=== PATIENT | female | born 1975 | race Caucasian/White ===

== ENCOUNTER 2017-02-15 00:06 | Emergency (ER) | payer OTHER ==
[~2017-02-15] VITALS: Ht 167.6 cm; Wt 86.2 kg
[2017-02-15 00:07] VITALS: BP 143/93
[2017-02-15] MEDS ORDERED: IV NORMAL SALINE 1,000ML 1,000 ML IV SCH (00:30)
[2017-02-15] MEDS ORDERED: MORPHINE SULFATE 4 MG/ML DISP.SYRIN. IM ONE (00:30)
[2017-02-15] MEDS ORDERED: KETOROLAC 60 MG/2 ML VIAL. IM ONE (00:30)
[2017-02-15] MEDS ORDERED: 0.9 % SODIUM CHLORIDE 10 ML DISP.SYRIN. IV PRN (00:30)
[2017-02-15] MEDS ORDERED: ONDANSETRON PF 4 MG/2 ML VIAL. IV ONE (00:30)
--- NOTE | 2017-02-15 00:30 | PHYS DOC ---
Past History Additional Past Medical Histor: menorrhagia Past Surgical History: Appendectomy, Cholecystectomy, Smoking: Cigarettes, Less than 1pk/day Alcohol Use: Occasionally Drug Use: None Adult General Chief Complaint Chief Complaint: ABDOMINAL PAIN HPI HPI Patient is a pleasant 41-year-old female G1 PTs 1001 was on her menstrual period presents with right lower quadrant abdominal pain in the suprapubic region described as typical crampy with the side of her menstrual periods. She admits to normal she can take Motrin for her symptoms but now that is not improved her symptoms and she came in for treatment. She denies any UTI symptoms , nausea, vomiting, diarrhea. The only complaint that she has if she feels like she has press down crying a lot intra-abdominal pressure to urinate. Patient's pain is moderate at this time with some mild radiation to the lower back. On the right patient denies any trauma denies any trauma or travel denies any recent antibiotic's. Patient did relate to us that she is going through a divorce and separation from her who was found cheating on her. She was seen 2 weeks ago by her primary care doctor and screened for STDs and which she told are negative. Review of Systems Review of Systems Constitutional: Denies fever or chills [] Eyes: Denies change in visual acuity, redness, or eye pain [] HENT: Denies nasal congestion or sore throat [] Respiratory: Denies cough or shortness of breath [] Cardiovascular: No additional information not addressed in HPI [] GI: As in waves of lower abdominal pain with no nausea no vomiting no bloody stools or diarrhea. sHe is having dysmenorrhea with increased vaginal bleeding. : Denies dysuria or hematuria [she is having some urgency Musculoskeletal: Patient does complain of some mild back pain on the right Integument: Denies rash or skin lesions [] Neurologic: Denies headache, focal weakness or sensory changes [] Endocrine: Denies polyuria or polydipsia [] All other systems were reviewed and found to be within normal limits, except as documented in this note. Current Medications Current Medications Current Medications Medications (Trade) Dose Ordered Sig/Kristofer Start Time Stop Time Status Last Admin Dose Admin Ketorolac Tromethamine (Toradol) 60 mg 1X ONCE 02/15/17 00:30 02/15/17 00:31 UNV Morphine Sulfate (Morphine 4mg Syringe) 4 mg 1X ONCE 02/15/17 00:30 02/15/17 00:31 UNV Physical Exam Physical Exam Patient's vital signs are normal recorded on the chart Constitutional: Well developed, well nourished, no acute distress, non-toxic appearance. [] HENT: Normocephalic, atraumatic, bilateral external ears normal, oropharynx moist, no oral exudates, nose normal. [] Eyes: PERRLA, EOMI, conjunctiva normal, no discharge. [] Neck: Normal range of motion, no tenderness, supple, no stridor. [] Cardiovascular:Heart rate regular rhythm, no murmur [] Lungs & Thorax: Bilateral breath sounds clear to auscultation [] Abdomen: Patient does have tenderness over the supervision old on the right lower quadrant. Skin: Warm, dry, no erythema, no rash. [] Back: Mild tenderness of the right blanca spinae muscles but nothing midline no CVA tenderness. [] Extremities: No tenderness, no cyanosis, no clubbing, ROM intact, no edema. [] Neurologic: Alert and oriented X 3, normal motor function, normal sensory function, no focal deficits noted. [] Psychologic: sHe is mildly anxious while she is in pain but normal judgment EKG EKG [] Radiology/Procedures Radiology/Procedures [] Course & Med Decision Making Course & Med Decision Making Pertinent Labs and Imaging studies reviewed. (See chart for details) []She presents with menorrhagia. She typically takes Motrin and he feels better but unfortunately she is concerned that she needs something for part for pain. Initial presentation patient's urine test was positive. In order to confirm location patient had serum quantitative hCG completed, ultrasound and appropriate lab work. Patient's Quant was less than 1, ultrasound demonstrated normal flow to both ovaries and no evidence of ovarian torsion, no evidence of ectopic , no evidence of whatsoever. Patient's uterus was closed and not retaining any foreign body or bleeding. Patient's urinalysis or signs of contamination secondary to red blood cells and epithelial cells with no signs of infection patient has no elevated white blood cell count of 16.2 of unclear etiology CBC is normal otherwise Laboratory Tests Test 02/15/17 00:15 02/15/17 00:40 02/15/17 01:41 Urine Collection Type Unknown Urine Color Yellow Urine Clarity Hazy Urine pH 5.5 Urine Specific [place] >=1.030 Urine Protein 30 mg/dl (NEG-TRACE) Urine Glucose (UA) Neg mg/dL (NEG) Urine Ketones (Stick) Neg mg/dL (NEG) Urine Blood Large (NEG) Urine Nitrite Neg (NEG) Urine Bilirubin Neg (NEG) Urine Urobilinogen Dipstick 0.2 mg/dL (0.2 mg/dL) Urine Leukocyte Esterase Small (NEG) Urine RBC >40 /HPF (0-2) Urine WBC 1-4 /HPF (0-4) Urine Squamous Epithelial Cells Few /LPF Urine Bacteria Few /HPF (0-FEW) White Blood Count 16.2 x10^3/uL (4.0-11.0) H Red Blood Count 4.51 x10^6/uL (3.50-5.40) Hemoglobin 14.3 g/dL (12.0-15.5) Hematocrit 41.1 % (36.0-47.0) Mean Corpuscular Volume 91 fL (79-100) Mean Corpuscular Hemoglobin 32 pg (25-35) Mean Corpuscular Hemoglobin Concent 35 g/dL (31-37) Red Cell Distribution Width 13.0 % (11.5-14.5) Platelet Count 219 x10^3/uL (140-400) Neutrophils (%) (Auto) 77 % (31-73) H Lymphocytes (%) (Auto) 13 % (24-48) L Monocytes (%) (Auto) 7 % (0-9) Eosinophils (%) (Auto) 3 % (0-3) Basophils (%) (Auto) 1 % (0-3) Neutrophils # (Auto) 12.4 x10^3uL (1.8-7.7) H Lymphocytes # (Auto) 2.1 x10^3/uL (1.0-4.8) Monocytes # (Auto) 1.1 x10^3/uL (0.0-1.1) Eosinophils # (Auto) 0.4 x10^3/uL (0.0-0.7) Basophils # (Auto) 0.1 x10^3/uL (0.0-0.2) Segmented Neutrophils % 74 % (35-66) H Band Neutrophils % 2 % (0-9) Lymphocytes % 17 % (24-48) L Monocytes % 6 % (0-10) Eosinophils % 1 % (0-5) Platelet Estimate Adequate (ADEQUATE) Maternal Serum HCG Beta Subunit < 1 mIU/mL (0-6) Sodium Level 140 mmol/L (136-145) Potassium Level 3.6 mmol/L (3.5-5.1) Chloride Level 103 mmol/L (98-107) Carbon Dioxide Level 26 mmol/L (21-32) Anion Gap 11 (6-14) Blood Urea Nitrogen 16 mg/dL (7-20) Creatinine 0.9 mg/dL (0.6-1.0) Estimated GFR (Cockcroft-Gault) 69.7 Glucose Level 105 mg/dL (70-99) H Calcium Level 8.8 mg/dL (8.5-10.1) POC Urine HCG, Qualitative hcg positive (Negative) Patient had discussed menorrhagia and treatment for this issue.discharge: I've spoken with the patient and/or caregivers. I've explained the patient's condition, diagnosis and treatment plan based on information available to me at this time. I've answered the patient's and/or caregivers questions and addressed any concerns. The patient and/or caregivers have a good understanding the patient's diagnosis, condition and treatment plan as can be expected at this point. Vital signs have been stabilized. The patient's condition is stable for discharge from the emergency department. The patient will pursue further outpatient evaluation with her primary care provider or other designated consulting physician as outlined in the discharge instructions. Patient and/or caregivers are agreeable to this plan of care and follow-up instructions have been explained in detail. The patient and/or caregivers have received these instructions in written format and expressed understanding of these discharge instructions. The patient and her caregivers are aware that if any significant change in condition or worsening of symptoms should prompt him to immediately return to this of the closest emergency department. If an emergent department is not readily available I would encourage him to call 911. Sandra Disclaimer Dragon Disclaimer This electronic medical record was generated, in whole or in part, using a voice recognition dictation system. Departure Departure: Impression: Primary Impression: Menorrhagia Disposition: 01 HOME, SELF-CARE Condition: IMPROVED Referrals: MAURICE BEATTY MD (PCP) Patient Instructions: Menorrhagia Additional Instructions: discharge: I've spoken with the patient and/or caregivers. I've explained the patient's condition, diagnosis and treatment plan based on information available to me at this time. I've answered the patient's and/or caregivers questions and addressed any concerns. The patient and/or caregivers have a good understanding the patient's diagnosis, condition and treatment plan as can be expected at this point. Vital signs have been stabilized. The patient's condition is stable for discharge from the emergency department. The patient will pursue further outpatient evaluation with her primary care provider or other designated consulting physician as outlined in the discharge instructions. Patient and/or caregivers are agreeable to this plan of care and follow-up instructions have been explained in detail. The patient and/or caregivers have received these instructions in written format and expressed understanding of these discharge instructions. The patient and her caregivers are aware that if any significant change in condition or worsening of symptoms should prompt him to immediately return to this of the closest emergency department. If an emergent department is not readily available I would encourage him to call 911. Scripts Naproxen Sodium (NAPROXEN SODIUM) 275 Mg Tablet 275 MG PO BID for 7 Days, #14 TAB Prov: AARTI AUGUSTINE MD 02/15/17 Hydrocodone Bit/Acetaminophen (HYDROCODONE-APAP 5-325 ) 1 Each Tablet 1 TAB PO PRN Q6HRS Y for PAIN for 3 Days, #10 TAB 0 Refills Prov: AARTI AUGUSTINE MD 02/15/17 AARTI AUGUSTINE MD Feb 15, 2017 00:30
[2017-02-15 01:13] LABS: BASO # 0.1 x10^3/uL (0.0-0.2); BASO % 1 % (0-3); EOS # 0.4 x10^3/uL (0.0-0.7); EOS % 3 % (0-3); HEMATOCRIT 41.1 % (36.0-47.0); HEMOGLOBIN 14.3 g/dL (12.0-15.5); LYMPH # 2.1 x10^3/uL (1.0-4.8); LYMPH % 13 % (24-48); MEAN CORPUSCULAR HEMOGLOBIN 32 pg (25-35); MEAN CORPUSCULAR HGB CONC 35 g/dL (31-37); MEAN CORPUSCULAR VOLUME 91 fL (79-100); MONO # 1.1 x10^3/uL (0.0-1.1); MONO % 7 % (0-9); NEUT # 12.4 x10^3uL (1.8-7.7); NEUT % 77 % (31-73); PLATELET COUNT 219 x10^3/uL (140-400); RED BLOOD COUNT 4.51 x10^6/uL (3.50-5.40); WHITE BLOOD COUNT 16.2 x10^3/uL (4.0-11.0)
[2017-02-15 01:18] LABS: CALCIUM 8.8 mg/dL (8.5-10.1); CREATININE 0.9 mg/dL (0.6-1.0); GFR 69.7; POTASSIUM 3.6 mmol/L (3.5-5.1)
[2017-02-15 01:20] LABS: BILIRUBIN,URINE NEG (NEG); CLARITY,URINE HAZY; COLOR,URINE YELLOW; GLUCOSE,URINE NEG (NEG)
[2017-02-15 01:21] LABS: BACTERIA,URINE FEW /HPF (0-FEW); NITRITE,URINE NEG (NEG); RBC,URINE >40 /HPF (0-2); SQUAMOUS EPITHELIAL CELL,UR FEW /LPF; UROBILINOGEN,URINE 0.2 mg/dL (0.2 mg/dL)
[2017-02-15 01:41] LABS: % BANDS 2 % (0-9); % EOS 1 % (0-5); % LYMPHS 17 % (24-48); % MONOS 6 % (0-10); % SEGS 74 % (35-66); PLT ESTIMATE ADEQUATE (ADEQUATE)
[2017-02-15] MEDS ORDERED: HYDR-2758 PO (01:50)
[2017-02-15] MEDS ORDERED: NAPR275T59 PO (01:50)
--- NOTE | 2017-02-15 02:07 | RAD ---
Obstetrical ultrasound less than 14 weeks transabdominal and transvaginal imaging HISTORY: Cramping, vaginal bleeding, positive urine negative hCG quantitative Transabdominal ultrasound was performed. Bladder is mildly distended but the uterus is poorly seen. There is no free fluid in the pelvis. Ovaries were not identified. Transvaginal imaging was performed for further evaluation. There is debris in the endometrium and endocervical canal likely hemorrhage or retained products of conception. A gestational sac is not identified. A yolk sac is not identified. There is no free fluid in the cul-de-sac. Uterus measures 11.1 x 4.5 x 4.9 cm. Endometrium measured 1.1 cm. Left ovary was normal measuring 3.9 x 2.4 x 2.3 cm with small follicles Right ovary was normal measuring 2 x 2.7 x 2.1 cm with small follicles. There is flow in both ovaries with color imaging and Doppler On the cine loop there appears to be movement of the endometrial debris probably related to hemorrhage. IMPRESSION: 1. Debris in the endometrium or hemorrhage. 2. A gestational sac is not identified. 3. No adnexal mass or free fluid. 4. Normal ovaries Electronically signed by: Oleg Gloria MD (02/15/2017 2:03 AM) [facility]
== END 2017-02-15 02:00 | disposition home or self-care (01) ==
LOC: ER 00:06
DX: N92.0 Excessive and frequent menstruation with regular cycle (principal); Z33.1 Pregnant state, incidental
CPT/HCPCS: 36415; 76801; 80048; 81001; 81025; 84702; 85007; 85025; 86900; 86901; 87086; 96361; 96372; 96374; 99285; J2270; J2405; J7030

== ENCOUNTER → 2017-02-25 | Outpatient (CLI) | payer OTHER ==
[2017-02-15 00:07] VITALS: BP 143/93
[~2017-02-25] MED LIST: HYDR-2758 PO; NAPR275T59 PO
[2017-02-25 09:09] LABS: ALBUMIN 3.9 g/dL (3.4-5.0); ALBUMIN/GLOBULIN RATIO 1.2 (1.0-1.7); CALCIUM 8.7 mg/dL (8.5-10.1); CREATININE 0.7 mg/dL (0.6-1.0); GFR 93.2; POTASSIUM 4.1 mmol/L (3.5-5.1); TOTAL BILIRUBIN 0.4 mg/dL (0.2-1.0); TOTAL PROTEIN 7.2 g/dL (6.4-8.2)
[2017-02-25 14:10] LABS: THYROID STIM HORMONE (TSH) 2.122 uIU/mL (0.358-3.740)
[2017-02-25 19:08] LABS: DHEA SO4 157.8 ug/dL (57.3-279.2); ESTRADIOL LEVEL 137.5 pg/mL (.); FSH 6.2 mIU/mL (.); PROLACTIN 11.7 ng/mL (4.8-23.3)
[2017-02-27 22:07] LABS: INSULIN LEVEL 18.4 uIU/mL (2.6-24.9)
== END | disposition home or self-care (01) ==
LOC: LAB 07:49
PROVIDERS: ATTEND Family Medicine
DX: N92.0 Excessive and frequent menstruation with regular cycle (principal); N89.8 Other specified noninflammatory disorders of vagina; F17.210 Nicotine dependence, cigarettes, uncomplicated; R79.89 Other specified abnormal findings of blood chemistry
CPT/HCPCS: 36415; 80053; 80061; 82627; 82670; 83001; 83002; 83036; 83525; 84146; 84402; 84403; 84443

== ENCOUNTER 2017-03-19 17:22 | Emergency (ER) | payer OTHER ==
[~2017-03-19] VITALS: Ht 167.6 cm; Wt 86.2 kg
[2017-03-19 17:27] VITALS: BP 119/72
--- NOTE | 2017-03-19 17:45 | PHYS DOC ---
General Chief Complaint: SEXUALLY TRANSMITTED DISEASE Stated Complaint: STD EXPOSURE Time Seen by MD: 17:42 Source: patient Exam Limitations: no limitations Problems: History of Present Illness Initial Comments Patient is a 41-year-old female complaining of STI exposure. Patient is and monogamous she states that her spouse recently revealed that he has not been faithful and tested positive for gonorrhea. Patient is requesting treatment she does not want any testing at this time. She does have history of Trichomonas exposure infection and treatment in the past which she also contracted from her spouse. She currently denies any symptoms no dysuria dyspareunia discharge odor or urinary symptoms. She is emotional when discussing the events but denies suicidal or homicidal ideation. Vital signs are stable Timing/Duration: other Severity: moderate Modifying Factors: improves with other Allergies: Coded Allergies: Penicillins (Verified Allergy, Unknown, 02/15/17) Past Medical History Medical History: no pertinent history Surgical History: noncontributory Social History Smoker: non-smoker Alcohol: none Drugs: none Review of Systems Constitutional: denies chills, denies fever Respiratory: denies cough, denies shortness of breath Cardiovascular: denies chest pain Gastrointestinal: denies abdominal pain, denies nausea, denies vomiting Genitourinary: denies discharge, denies dysuria, denies frequency, denies hematuria Musculoskeletal: denies back pain, denies joint swelling Physical Exam General Appearance: WD/WN, no apparent distress Ear, Nose, Throat: hearing grossly normal, normal ENT inspection Neck: non-tender, supple Respiratory: normal breath sounds, no respiratory distress Cardiovascular: normal peripheral pulses, regular rate, rhythm Gastrointestinal: non tender, soft Rectal: deferred Back: no CVA tenderness, no vertebral tenderness, other (pelvic deferred per patient) Extremities: non-tender, normal inspection Neurologic/Psychiatric: aqua ammonia operator II-XII nml as tested, no motor/sensory deficits, alert, oriented x 3 Skin: normal color, warm/dry Orders, Labs, Meds Rocephin and Zithromax given in the emergency department. I discussed departure instructions for [id number] and provided them in written form see below. Patient expressed agreement and understanding. Departure Time of Disposition: 17:43 Disposition: 01 HOME, SELF-CARE Diagnosis: STI exposure Condition: GOOD Patient Instructions: Gonorrhea, Females and Males Additional Instructions: As discussed, Rocephin and Zithromax were given in the emergency department and should adequately treat this infection if present. Barrier protection until follow-up with your doctor and retesting is negative. Follow-up with your doctor in 5 days for recheck. Return to the ED with new or changing symptoms. NIYA CERVANTES DO Mar 19, 2017 17:45
[2017-03-19] MEDS ORDERED: AZITHROMYCIN 250 MG TABLET. PO ONE (18:00)
[2017-03-19] MEDS ORDERED: cefTRIAXone IM 1 GM VIAL IM ONE (18:00)
== END 2017-03-19 18:13 | disposition home or self-care (01) ==
LOC: ER 17:22
DX: Z20.2 Contact with and (suspected) exposure to infections with a predominantly sexual mode of transmission (principal); Z88.0 Allergy status to penicillin
CPT/HCPCS: 96372; 99283; J0456; J0696

== ENCOUNTER → 2018-03-15 | Outpatient (CLI) | payer OTHER ==
[~2018-03-15] MED LIST changes: +HYDR-2155 PO; -HYDR-2758 PO
--- NOTE | 2018-03-16 07:20 | RAD ---
DATE: 03/15/2018 EXAM: MAMMO [facility], BREAST LEFT HISTORY: Lateral left breast pain, patient is due for screening mammogram. COMPARISON: None This study was interpreted with the benefit of Computerized Aided Detection (CAD). The breast parenchyma shows scattered fibroglandular densities. Breast parenchyma level B. FINDINGS: Diagnostic digital 3-D bilateral mammogram: Bilateral digital 2-D and 3-D tomosynthesis CC and MLO views. No suspicious mass, calcification or architectural distortion. Patient will proceed to limited left breast ultrasound for further evaluation of lateral left breast pain. Limited left breast ultrasound: Survey of the lateral left breast was performed with no suspicious mass or fluid collection. IMPRESSION: No evidence of malignancy. Patient return to screening mammogram with a target date of March 05, 2019. BI-RADS CATEGORY: 1 NEGATIVE RECOMMENDED FOLLOW-UP: 12M 12 MONTH FOLLOW-UP PQRS compliance statement: Patient information was entered into a reminder system with a target due date for the next mammogram. Mammography is a sensitive method for finding small breast cancers, but it does not detect them all and is not a substitute for careful clinical examination. A negative mammogram does not negate a clinically suspicious finding and should not result in delay in biopsying a clinically suspicious abnormality. "Our facility is accredited by the [employer] Mammography Program."
== END | disposition home or self-care (01) ==
LOC: MAMMO 13:47
PROVIDERS: ATTEND Registered Nurse
DX: N64.4 Mastodynia (principal)
CPT/HCPCS: 76641; 77066; G0279; 77062